=== PATIENT | male | born 1990 | race Caucasian/White ===

== ENCOUNTER 2019-01-10 12:52 | Emergency (ER) | payer BC ==
[2019-01-10] MEDS ORDERED: diphenhydrAMINE 50 MG/ML VIAL ONE (14:11)
[2019-01-10] MEDS ORDERED: Prochlorperazine 10 MG/2 ML VIAL ONE (14:11)
[2019-01-10] MEDS ORDERED: Ketorolac Tromethamine 30 MG/ML VIAL ONE (14:11)
== END 2019-01-10 15:44 | disposition home or self-care (01) ==
LOC: SCSER 12:52
DX: G43.909 Migraine, unspecified, not intractable, without status migrainosus (principal); F41.9 Anxiety disorder, unspecified; Z79.899 Other long term (current) drug therapy
CPT/HCPCS: 96365; 96375; J0780; J1200; J1885

== ENCOUNTER 2019-03-03 09:56 | Emergency (ER) | payer BC ==
[2019-03-03] MEDS ORDERED: Acetaminophen 500 MG TAB ONE (10:30)
[2019-03-03] MEDS ORDERED: diphenhydrAMINE 50 MG/ML VIAL ONE (10:30)
[2019-03-03] MEDS ORDERED: Ketorolac Tromethamine 30 MG/ML VIAL ONE (10:31)
[2019-03-03] MEDS ORDERED: Metoclopramide HCl 10 MG/2 ML VIAL ONE (10:32)
[2019-03-03] MEDS ORDERED: methylPREDNISolone Sod Succ/PF 125 MG/2 ML VIAL ONE (11:07)
[2019-03-03] MEDS ORDERED: Magnesium Sulfate 2 GM/NS 0.9% 50 ML BAG ONE (11:08)
== END 2019-03-03 11:37 | disposition home or self-care (01) ==
LOC: SCSER 09:56
DX: R51 Headache (principal)
CPT/HCPCS: 96361; 96365; 96375; J1200; J1885; J2765; J2930; J3475